=== PATIENT | female | born 1955 | race American Indian/Alaskan Native ===

== ENCOUNTER 2016-12-22 14:23 | Inpatient (IN) | payer MEDICAID, OTHER ==
[2016-12-22 14:26] VITALS: BMI 17.3
[2016-12-22] MEDS ORDERED: Sodium Chloride 0.9% 500 ML IV STA (14:51)
[2016-12-22] MEDS ORDERED: Iohexol 240 (50 ml) ONE (14:58)
--- NOTE | 2016-12-22 15:00 | ED PDOC ---
Arrival/HPI - General Chief Complaint: GI Problem Time Seen by Provider: 12/22/16 14:34 Historian: Patient - History of Present Illness Narrative History of Present Illness (Text): 12/22/16 14:56 61 yo F with past medical history of hypertension and hiatal hernia, complains of one-week history of decreased appetite, due to nausea and vomiting associated with intermittent upper abdominal abdominal pain, patient also reports a 10 pound weight loss in the past month. Patient states that she is currently visiting her daughter here in [place] and receives most of her care in [facility], states that she recently saw a surgeon at the clinic and was advised that a hiatal hernia cannot be repaired. She adds that she has seen a GI doctor in the past, has had a recent endoscopy and colonoscopy which were within normal limits. Otherwise: (-) chest pain, (-) SOB, (-) diarrhea, (-) fever, (-) melena, (-) hematochezia, (-) urinary symptom. Has history of prior abdominal surgery - hysterectomy and prior umbilical hernia repair. PMD in [place] Past Medical History - Provider Review Nursing Documentation Reviewed: Yes - Infectious Disease Hx of Infectious Diseases: None - Cardiac Hx Angina: Yes Hx Hypertension: Yes - Neurological HX Cerebrovascular Accident: Yes Hx Migraine: Yes - Hematological/Oncological Hx Anemia: Yes - Musculoskeletal/Rheumatological Hx Arthritis: Yes - Gastrointestinal Hx Gastrointestinal Disorders: Yes - Genitourinary/Gynecological Other/Comment: stress incontinence - Psychiatric Hx Substance Use: No - Surgical History Hx Hysterectomy: Yes - Anesthesia Hx Anesthesia: Yes Hx Anesthesia Reactions: No Hx Malignant Hyperthermia: No Family/Social History - Physician Review Nursing Documentation Reviewed: Yes Family/Social History: No Known Family HX Smoking Status: Former Smoker Hx Alcohol Use: Yes (stopped) Hx Substance Use: No Allergies/Home Meds Allergies/Adverse Reactions: Allergies No Known Allergies Allergy (Verified 12/22/16 14:26) Home Medications: Home Meds Medication Instructions Recorded Confirmed Ferrous Sulfate [Feosol] 1 tab PO DAILY 12/22/16 12/22/16 Hydrochlorothiazide [Microzide] 1 tab PO DAILY 12/22/16 12/22/16 Naproxen [Naprosyn Tab] 1 tab PO BID 12/22/16 12/22/16 amLODIPine [Norvasc] 1 tab PO DAILY 12/22/16 12/22/16 Review of Systems - Review of Systems Constitutional: Normal, Weight Change. absent: Fatigue, Fevers Respiratory: Normal. absent: SOB, Cough, Sputum Cardiovascular: Normal. absent: Chest Pain, Palpitations, Edema Gastrointestinal: Normal, Abdominal Pain, Nausea, Vomiting, Appetite Changes. absent: Stool Changes, Constipation, Diarrhea Genitourinary Female: Normal. absent: Dysuria, Frequency, Hematuria Musculoskeletal: Normal. absent: Arthralgias, Back Pain, Neck Pain Skin: Normal. absent: Rash, Pruritis, Skin Lesions Neurological: Normal. absent: Headache, Dizziness, Focal Weakness Physical Exam - Physical Exam Narrative Physical Exam (Text): 12/22/16 15:01 GENERAL APPEARANCE: Patient is awake, alert, oriented x 3, in no acute distress , patient is cachectic in appearance. SKIN: Warm, dry; (-) cyanosis. EYES: (-) conjunctival pallor, (-) scleral icterus. ENMT: Mucous membranes dry. NECK: (-) tenderness, (-) stiffness, (-) lymphadenopathy. CHEST AND RESPIRATORY: (-) rales, (-) rhonchi, (-) wheezes; breath sounds equal bilaterally. HEART AND CARDIOVASCULAR: (-) irregularity; (-) murmur, (-) gallop. ABDOMEN AND GI: (+) vertical surgical scar from the epigastric area to the umbilicus, (-) distention. Bowel sounds active; soft, (+) upper and mid abdominal tenderness, (-) guarding, (-) rebound, (-) palpable masses, (-) CVA tenderness. EXTREMITIES: (-) deformity, (-) edema, (+) distal pulses. NEURO AND PSYCH: Mental status as above; (-) focal findings. Vital Signs Temp Pulse Resp BP Pulse Ox 12/22/16 21:23 103 H 18 140/70 100 12/22/16 19:07 88 18 134/72 96 12/22/16 17:46 86 18 104/68 98 12/22/16 15:35 98 H 18 102/65 98 12/22/16 14:33 97.7 F 107 H 18 100/67 98 Medical Decision Making ED Course and Treatment: 12/22/16 15:00 61 yo F with past medical history of hypertension and hiatal hernia, complains of one-week history of decreased appetite, due to nausea and vomiting associated with intermittent upper abdominal abdominal pain, patient also reports a 10 pound weight loss in the past month. Plan: -- Labs -- IV fluids -- Urinalysis -- EKG -- CXR -- Pepcid / Zofran / Toradol -- Patient placed in ED observation -- CT AP - Lab Interpretations Lab Results: 12/22/16 15:30 12/22/16 15:30 Lab Results 12/22/16 18:15: Urine Color Yellow, Urine Appearance Cloudy, Urine pH 7.5, Ur Specific [place] 1.015, Urine Protein Trace H, Urine Glucose (UA) Negative, Urine Ketones Trace H, Urine Blood Negative, Urine Nitrate Positive H, Urine Bilirubin Negative, Urine Urobilinogen 1.0 H, Ur Leukocyte Esterase Moderate H, Urine RBC 0 - 2, Urine WBC 10 - 15, Ur Epithelial Cells 4 - 5, Urine Bacteria Many 12/22/16 15:30: Sodium 135, Potassium 3.3 L, Chloride 90 L, Carbon Dioxide 30, Anion Gap 18, BUN 29 H, Creatinine 0.8, Est GFR ( Amer) > 60, Est GFR ( Non-Af Amer) > 60, Random Glucose 137 H, Calcium 10.4, Total Bilirubin 0.9, AST 27, ALT 16, Alkaline Phosphatase 56, Total Protein 8.7 H, Albumin 4.9 H, Globulin 3.8, Albumin/Globulin Ratio 1.3, Lipase 72 12/22/16 15:30: PT 12.0 H, INR 1.11 H, APTT 29.5 12/22/16 15:30: WBC 12.7 H, RBC 3.65, Hgb 10.6 L, Hct 32.3 L, MCV 88.5, MCH 29.0 , MCHC 32.8, RDW 15.2 H, Plt Count 329, MPV 8.9, Gran % 95.9 H, Lymph % (Auto) 2.3 L, [place] % (Auto) 1.7, Eos % (Auto) 0.1 L, Baso % (Auto) 0.0, Gran # 12.20 H , Lymph # 0.3 L, [place] # 0.2, Eos # 0.0, Baso # 0.00, Neutrophils % (Manual) 99 H , Lymphocytes % (Manual) 1 L, Monocytes % (Manual) TEST NOT PERFORMED, Platelet Evaluation Normal I have reviewed the lab results: Yes - RAD Interpretation Narrative RAD Interpretations (Text): 12/22/16 21:31 CT A/P w/ PO and IV contrast: FINDINGS: Lower thorax: Heart size is normal. There is inflammation in posterior mediastinal fat adjacent to the distal esophagus. Lung bases are hyperinflated but clear. ABDOMEN: Liver: There is fatty infiltration of the liver. Gallbladder and bile ducts: unremarkable Pancreas: unremarkable Spleen: unremarkable Adrenals: There is a 15 x 10 mm right adrenal cyst. Left adrenal is unremarkable. Kidneys and ureters: There are bilateral small low-attenuation renal lesions too small to characterize most likely cysts. There is no pelvocaliectasis or ureterectasis. Stomach and bowel: There are postsurgical changes at the gastric fundus suggesting fundoplication. There is mild inflammatory change at the gastroesophageal junction. Stomach is distended with a contrast fluid level. Rotation is normal. Duodenum and proximal jejunum are mildly distended and filled with contrast. Mid small bowel is dilated with air-fluid levels. There is swirling of the mesentery in the midabdomen. There is abrupt caliber change of the small bowel in the midabdomen, image 61 series 37, image 54 series 602. Distal small bowel is decompressed. Ileocecal region is difficult to evaluate. There is moderate stool in the colon. Colon is incompletely distended which limits evaluation. Appendix: See stomach and bowel PELVIS: Bladder: unremarkable Reproductive: Uterus is absent. There are no adnexal masses. ABDOMEN and PELVIS: Intraperitoneal space: There is a small amount of free fluid in the right flank. There is no free air. Bones/joints: There are degenerative changes in the osseus structures. Soft tissues: unremarkable Vasculature: There are vascular calcifications. Lymph nodes: There is no pathologic adenopathy. IMPRESSION: Mid small bowel obstruction secondary to volvulus; fundoplication with inflammatory change at the gastroesophageal junction; prior hysterectomy Additional findings as described above. Dictated and Authenticated by: Jennifer Shankar MD 12/22/2016 8:18 PM Eastern Time ([place] & [place]) Radiology Orders: 12/22/16 14:51 ABD PELVIS PO & IV CONTRAST [CT] Stat CHEST PORTABLE [RAD] Stat 12/22/16 21:12 CHEST PORTABLE [RAD] Stat - Medication Orders Current Medication Orders: Hydromorphone HCl (Dilaudid) 0.5 mg IVP Q4H PRN PRN Reason: Pain, moderate (4-7) Piperacillin Sod/Tazobactam Sod (Zosyn 3.375 In Ns 100ml) 100 mls @ 200 mls/hr IVPB Q6 REGI PRN Reason: Protocol Stop: 12/23/16 06:29 Lactated Ringer's (Lactated Ringer's) 1,000 mls @ 100 mls/hr IV .Q10H REGI Ondansetron HCl (Zofran Inj) 4 mg IVP Q6H PRN PRN Reason: Nausea/Vomiting Pantoprazole Sodium (Protonix Inj) 40 mg IVP DAILY REGI Discontinued Medications Famotidine (Pepcid) 20 mg IVP STAT STA Stop: 12/22/16 14:52 Last Admin: 12/22/16 15:36 Dose: 20 mg IVP Administration Document 12/22/16 15:36 ALHAJI (Rec: 12/22/16 15:37 [place] [id number]) Charges for Administration # of IVP Administrations 1 Sodium Chloride (Sodium Chloride 0.9%) 500 mls @ 1,000 mls/hr IV .Q30M STA Stop: 12/22/16 15:20 Last Admin: 12/22/16 15:25 Dose: 1,000 mls/hr eMAR Start Stop Document 12/22/16 15:25 ALHAJI (Rec: 12/22/16 15:26 [place] [id number]) Intravenous Solution Start Date 12/22/16 Start Time 15:25 End Date 12/22/16 End time 15:55 Total Infusion Time 30 Iohexol (Omnipaque 240 (50 Ml)) Confirm Administered Dose 50 ml .ROUTE .STK-MED ONE Stop: 12/22/16 14:59 Iohexol (Omnipaque 350 100 Ml) Confirm Administered Dose 350 mg .ROUTE .STK-MED ONE Stop: 12/22/16 18:39 Ketorolac Tromethamine (Toradol) 15 mg IVP STAT STA Stop: 12/22/16 15:01 Last Admin: 12/22/16 15:24 Dose: 15 mg MAR Pain Assessment Document 12/22/16 15:24 ALHAJI (Rec: 12/22/16 15:24 [place] [id number]) Pain Reassessment Is this a pain reassessment? Yes Presence of Pain Presence of Pain Yes Location Pain Location Body Site Abdomen Description Description Constant Intensity of Pain at present 7 IVP Administration Document 12/22/16 15:24 ALHAJI (Rec: 12/22/16 15:24 [place] [id number]) Charges for Administration # of IVP Administrations 1 Morphine Sulfate (Morphine) 2 mg IVP STAT STA Stop: 12/22/16 17:29 Last Admin: 12/22/16 17:49 Dose: 2 mg MAR Pain Assessment Document 12/22/16 17:49 IT (Rec: 12/22/16 17:49 IT [id number]) Pain Reassessment Is this a pain reassessment? Yes Sleep Is patient sleeping during reassessment? No Presence of Pain Presence of Pain Yes Pain Scale Used Pain Scale Used Numeric Location Left, Right or Bilateral Bilateral Pain Location Body Site Abdomen Description Description Pressure Intensity of Pain at present 7 IVP Administration Document 12/22/16 17:49 IT (Rec: 12/22/16 17:49 IT [id number]) Charges for Administration # of IVP Administrations 1 Ondansetron HCl (Zofran Inj) 4 mg IVP STAT STA Stop: 12/22/16 14:52 Last Admin: 12/22/16 15:23 Dose: 4 mg IVP Administration Document 12/22/16 15:23 ALHAJI (Rec: 12/22/16 15:23 [place] [id number]) Charges for Administration # of IVP Administrations 1 Ondansetron HCl (Zofran Inj) 4 mg IVP STAT STA Stop: 12/22/16 17:29 Last Admin: 12/22/16 17:45 Dose: 4 mg IVP Administration Document 12/22/16 17:45 IT (Rec: 12/22/16 17:45 IT [id number]) Charges for Administration # of IVP Administrations 1 Potassium Chloride (Potassium Chloride Oral Soln) 40 meq PO STAT STA Stop: 12/22/16 16:11 Last Admin: 12/22/16 16:42 Dose: 40 meq ED OBSERVATION Date of observation admission: 12/22/16 Time of observation admission: 14:51 - Observation admission statement Patient is being placed in observation because:: abdominal pain, N/V - Goals of Observation Goals of observation are:: to monitor patient's signs, symptoms, and response to treatment - Progress Note Progress Note: 12/22/16 16:30 Lab results reviewed : WBC 12, mild anemia noted, K 3.3, mild dehydration. Patient medicated with KCl 40 mEq PO. EKG : NSR at 93 bpm, normal axis, (-) acute ST changes, as read by PA. CXR: NAD, as read by PA. 12/22/16 17:29 On reevaluation, patient is laying in bed in no acute distress. Patient reports that her abdominal pain is recurring and that she is feeling nauseous and is having difficulty tolerating by mouth contrast. On exam, abdomen is not distended, remains soft with mid abdominal tenderness and guarding. Patient medicated with morphine 2 mg IV and Zofran [address] of the abdomen and pelvis still pending. 12/22/16 20:30 Received a call from [facility], spoke to the radiologist, who states that the patient has a mid small bowel obstruction due to a volvulus. Full CT report reviewed. client services vice president called immediately. Case d/w Dr. Yolanda Tran, nursing surgical services director who will evaluate the patient. NGT and VBG ordered. Case d/w Dr. Almanzar, who states that he will discuss the case with the nursing surgical services director for further plan of care. CT results d/w the patient in great detail, notified of dx. On re-evaluation, patient continue to c/o nausea with mid abdominal pain. On exam, abdomen is not distended, with mid abdominal tenderness. VSS. NGT placed. As per nursing surgical services director the patient will go to the OR tonight. Arrangements made for inpatient admission. Case d/w medical office professional instructor and with Dr. Israel, agree with plan to admit under the hospitalist with Dr. Almanzar as consult. - PA / MARRIAGE AND FAMILY THERAPIST / Resident Statement MD/DO has reviewed & agrees with the documentation as recorded. Disposition/Present on Arrival - Present on Arrival Any Indicators Present on Arrival: No History of DVT/PE: No History of Uncontrolled Diabetes: No Urinary Catheter: No History of Decub. Ulcer: No History Surgical Site Infection Following: None - Disposition Have Diagnosis and Disposition been Completed?: Yes Diagnosis: SBO (small bowel obstruction), Volvulus Disposition: HOSPITALIZED Disposition Time: 21:00 Patient Plan: Admission Condition: FAIR
--- NOTE | 2016-12-22 15:20 | RAD ---
HISTORY: abd pain COMPARISON: No prior. FINDINGS: LUNGS: The lungs are well inflated and clear. PLEURA: No significant pleural effusion identified, no pneumothorax apparent. CARDIOVASCULAR: Normal. OSSEOUS STRUCTURES: No significant abnormalities. VISUALIZED UPPER ABDOMEN: Normal. OTHER FINDINGS: There are multiple surgical clips in the epigastrium. IMPRESSION: No active pulmonary disease.
[2016-12-22 15:45] LABS: EOS % 0.1 % (1.5-5.0); GRAN % 95.9 % (50.0-68.0); HEMATOCRIT 32.3 % (36.0-48.0); LYMPH # 0.3 (1.2-3.4); LYMPH % 2.3 % (22.0-35.0); MEAN CELL VOLUME 88.5 fl (80.0-105.0); MEAN CORPUSCULAR HGB CONC 32.8 g/dl (31.0-37.0); MEAN PLATELET VOLUME 8.9 fl (7.0-11.0); MONO # 0.2 (0.1-0.6); MONO % 1.7 % (1.0-6.0); PLATELET COUNT 329 10^3/uL (120.0-450.0); RED CELL DISTRIBUTION WIDTH 15.2 % (11.5-14.5); WHITE BLOOD COUNT 12.7 10^3/ul (4.5-11.0)
[2016-12-22 15:58] LABS: INR 1.11 (0.93-1.08); PARTIAL THROMBOPLASTIN TIME 29.5 Seconds (23.7-30.8)
[2016-12-22 16:02] LABS: ALB/GLOB RATIO 1.3 (1.1-1.8); ALKALINE PHOSPHATASE 56 U/L (38-126); ALT/SGPT 16 U/L (7-56); AST/SGOT 27 U/L (14-36); BILIRUBIN,TOTAL 0.9 mg/dL (0.2-1.3); BLOOD UREA NITROGEN 29 mg/dL (7-21); CALCIUM 10.4 mg/dL (8.4-10.5); CARBON DIOXIDE 30 mmol/L (21-33); CHLORIDE 90 mmol/L (98-107); GFR AFRICAN-AMERICAN > 60; GLUCOSE,RANDOM 137 mg/dL (70-110); LIPASE 72 U/L (23-300); POTASSIUM 3.3 mmol/L (3.6-5.0); SODIUM 135 mmol/L (132-148); TOTAL PROTEIN 8.7 g/dL (5.8-8.3)
[2016-12-22] MEDS ORDERED: Potassium Chloride 20 mEq/15 ml LIQ UD PO STA (16:10)
[2016-12-22 17:04] LABS: NEUTROPHIL 99 % (50.0-70.0); PLATELET ESTIMATE NORMAL (NORMAL)
[2016-12-22] MEDS ORDERED: Morphine 4 mg/ml ISec IVP STA (17:28)
[2016-12-22 18:20] LABS: PH,URINE 7.5 (4.7-8.0); URINE BILIRUBIN NEGATIVE (NEGATIVE); URINE BLOOD NEGATIVE (NEGATIVE); URINE COLOR YELLOW (YELLOW); URINE GLUCOSE (UA) NEGATIVE (NEGATIVE); URINE KETONE TRACE mg/dL (NEGATIVE); URINE LEUKOCYTE ESTERASE MODERATE Leu/uL (NEGATIVE); URINE PROTEIN TRACE mg/dL (<30 mg/dL)
[2016-12-22 18:21] LABS: URINE APPEARANCE CLOUDY (CLEAR)
[2016-12-22 18:26] LABS: URINE BACTERIA MANY (NEG); URINE RBC 0 - 2 /hpf (0-2)
[2016-12-22] MEDS ORDERED: Iohexol 350 MG/100 ML VIAL ONE (18:38)
--- NOTE | 2016-12-22 20:18 | CT ---
EXAM: CT Abdomen and Pelvis With Intravenous Contrast EXAM DATE/TIME: 12/22/2016 2:51 PM CLINICAL HISTORY: 61 years old, female; Pain; Abdominal pain; Generalized; Prior surgery; Surgery date: 6+ months; Surgery type: HX hiatal hernia repair, HX hysterectomy, HX heniorrhaphy; Additional info: Abd pain, h/o hiatal hernia, prior hernia repair TECHNIQUE: Axial computed tomography images of the abdomen and pelvis with intravenous contrast. All CT scans at this facility use one or more dose reduction techniques, viz.: automated exposure control; ma/kV adjustment per patient size (including targeted exams where dose is matched to indication; i.e. head); or iterative reconstruction technique. Coronal and sagittal reformatted images were created and reviewed. CONTRAST: 100 mL of OMNIPAQUE 350 administered intravenously. COMPARISON: There are no prior studies for comparison. FINDINGS: Lower thorax: Heart size is normal. There is inflammation in posterior mediastinal fat adjacent to the distal esophagus. Lung bases are hyperinflated but clear. ABDOMEN: Liver: There is fatty infiltration of the liver. Gallbladder and bile ducts: unremarkable Pancreas: unremarkable Spleen: unremarkable Adrenals: There is a 15 x 10 mm right adrenal cyst. Left adrenal is unremarkable. Kidneys and ureters: There are bilateral small low-attenuation renal lesions too small to characterize most likely cysts. There is no pelvocaliectasis or ureterectasis. Stomach and bowel: There are postsurgical changes at the gastric fundus suggesting fundoplication. There is mild inflammatory change at the gastroesophageal junction. Stomach is distended with a contrast fluid level. Rotation is normal. Duodenum and proximal jejunum are mildly distended and filled with contrast. Mid small bowel is dilated with air-fluid levels. There is swirling of the mesentery in the midabdomen. There is abrupt caliber change of the small bowel in the midabdomen, image 61 series 37, image 54 series 602. Distal small bowel is decompressed. Ileocecal region is difficult to evaluate. There is moderate stool in the colon. Colon is incompletely distended which limits evaluation. Appendix: See stomach and bowel PELVIS: Bladder: unremarkable Reproductive: Uterus is absent. There are no adnexal masses. ABDOMEN and PELVIS: Intraperitoneal space: There is a small amount of free fluid in the right flank. There is no free air. Bones/joints: There are degenerative changes in the osseus structures. Soft tissues: unremarkable Vasculature: There are vascular calcifications. Lymph nodes: There is no pathologic adenopathy. IMPRESSION: Mid small bowel obstruction secondary to volvulus; fundoplication with inflammatory change at the gastroesophageal junction; prior hysterectomy Additional findings as described above.
[2016-12-22] MEDS ORDERED: HYDROmorphone 0.5 mg/0.5 ml ISec IVP PRN (21:04)
--- NOTE | 2016-12-22 21:39 | CP.PCM.CON ---
History of Present Illness - History of Present Illness History of Present Illness: 61F w/ PMHx of HTN, asthma, arthritis, hiatal hernia s/p hiatal hernia repair ( 2003) presents to the ED w/ complaints of abdominal pain. Patient reports earlier today she developed abdominal pain which began along mid abdominal region and began radiating towards the RLQ. Patient states when she realized pain was not improving she asked her son Mariano and her daughter in law to bring her to the ED. Patient reports having multiple bouts of non-bloody emesis. She also reports anorexia throughout the day and difficulty with swallowing as well as belching. Currently patient reports pain as a 10/10. She denies any fever/ chills. Reports nausea/vomiting, abdominal pain which has not improved since arriving to ED.Review of vitals demonstrates tachycardia (107) but other vital signs are withing normal parameters. PMHx: as stated above PSurgHx: Hiatal hernia repair (2003), hysterectomy SocHx: Denies EtOH use, smoked 1ppd for ~10 years, no longer smokes Review of Systems - Review of Systems Review of Systems: 12 pt ROS negative except as stated in HPI Past Patient History - Infectious Disease Hx of Infectious Diseases: None - Past Social History Smoking Status: Former Smoker - CARDIAC Hx Angina: Yes Hx Hypertension: Yes - NEUROLOGICAL HX Cerebrovascular Accident: Yes Hx Migraine: Yes - HEMATOLOGICAL/ONCOLOGICAL Hx Anemia: Yes - MUSCULOSKELETAL/RHEUMATOLOGICAL Hx Arthritis: Yes - GASTROINTESTINAL Hx Gastrointestinal Disorders: Yes - GENITOURINARY/GYNECOLOGICAL Other/Comment: stress incontinence - PSYCHIATRIC Hx Substance Use: No - SURGICAL HISTORY Hx Hysterectomy: Yes - ANESTHESIA Hx Anesthesia: Yes Hx Anesthesia Reactions: No Hx Malignant Hyperthermia: No Meds Allergies/Adverse Reactions: Allergies Allergy/AdvReac Type Severity Reaction Status Date / Time No Known Allergies Allergy Verified 12/22/16 14:26 - Medications Medications: Current Medications Hydromorphone HCl (Dilaudid) 0.5 mg IVP Q4H PRN PRN Reason: Pain, moderate (4-7) Pantoprazole Sodium (Protonix 40mg Ivpb) 40 mg in 100 mls @ 200 mls/hr IVPB 0600 REGI Piperacillin Sod/Tazobactam Sod (Zosyn 3.375 In Ns 100ml) 100 mls @ 200 mls/hr IVPB Q6 REGI PRN Reason: Protocol Stop: 12/23/16 06:29 Lactated Ringer's (Lactated Ringer's) 1,000 mls @ 100 mls/hr IV .Q10H REGI Ondansetron HCl (Zofran Inj) 4 mg IVP Q6H PRN PRN Reason: Nausea/Vomiting Physical Exam - Constitutional Appears: No Acute Distress - Head Exam Head Exam: NORMOCEPHALIC - Eye Exam Eye Exam: Normal appearance - ENT Exam ENT Exam: Mucous Membranes Moist - Respiratory Exam Respiratory Exam: NORMAL BREATHING PATTERN - Cardiovascular Exam Cardiovascular Exam: +S1, +S2 - GI/Abdominal Exam GI & Abdominal Exam: Guarding, Tenderness. absent: Distended, Rebound, Rigid - Extremities Exam Extremities exam: Negative for: pedal edema - Neurological Exam Neurological exam: Alert - Psychiatric Exam Psychiatric exam: Normal Mood - Skin Skin Exam: Dry, Intact, Warm Additional comments: midline laparotomy scar Results - Vital Signs Recent Vital Signs: Last Vital Signs Temp 97.7 F 12/22/16 14:33 Pulse 103 H 12/22/16 21:23 Resp 18 12/22/16 21:23 BP 140/70 12/22/16 21:23 Pulse Ox 100 12/22/16 21:23 - Labs Result Diagrams: 12/22/16 15:30 12/22/16 15:30 Labs: Laboratory Results - last 24 hr 12/22/16 12/22/16 12/22/16 15:30 15:30 15:30 WBC 12.7 H RBC 3.65 Hgb 10.6 L Hct 32.3 L MCV 88.5 MCH 29.0 MCHC 32.8 RDW 15.2 H Plt Count 329 MPV 8.9 Gran % 95.9 H Lymph % (Auto) 2.3 L [place] % (Auto) 1.7 Eos % (Auto) 0.1 L Baso % (Auto) 0.0 Gran # 12.20 H Lymph # 0.3 L [place] # 0.2 Eos # 0.0 Baso # 0.00 Neutrophils % (Manual) 99 H Lymphocytes % (Manual) 1 L Monocytes % (Manual) TEST NOT PERFORMED Platelet Evaluation Normal PT 12.0 H INR 1.11 H APTT 29.5 Sodium 135 Potassium 3.3 L Chloride 90 L Carbon Dioxide 30 Anion Gap 18 BUN 29 H Creatinine 0.8 Est GFR ( Amer) > 60 Est GFR (Non-Af Amer) > 60 Random Glucose 137 H Calcium 10.4 Total Bilirubin 0.9 AST 27 ALT 16 Alkaline Phosphatase 56 Total Protein 8.7 H Albumin 4.9 H Globulin 3.8 Albumin/Globulin Ratio 1.3 Lipase 72 Urine Color Urine Appearance Urine pH Ur Specific [place] Urine Protein Urine Glucose (UA) Urine Ketones Urine Blood Urine Nitrate Urine Bilirubin Urine Urobilinogen Ur Leukocyte Esterase Urine RBC Urine WBC Ur Epithelial Cells Urine Bacteria 12/22/16 18:15 WBC RBC Hgb Hct MCV MCH MCHC RDW Plt Count MPV Gran % Lymph % (Auto) [place] % (Auto) Eos % (Auto) Baso % (Auto) Gran # Lymph # [place] # Eos # Baso # Neutrophils % (Manual) Lymphocytes % (Manual) Monocytes % (Manual) Platelet Evaluation PT INR APTT Sodium Potassium Chloride Carbon Dioxide Anion Gap BUN Creatinine Est GFR ( Amer) Est GFR (Non-Af Amer) Random Glucose Calcium Total Bilirubin AST ALT Alkaline Phosphatase Total Protein Albumin Globulin Albumin/Globulin Ratio Lipase Urine Color Yellow Urine Appearance Cloudy Urine pH 7.5 Ur Specific [place] 1.015 Urine Protein Trace H Urine Glucose (UA) Negative Urine Ketones Trace H Urine Blood Negative Urine Nitrate Positive H Urine Bilirubin Negative Urine Urobilinogen 1.0 H Ur Leukocyte Esterase Moderate H Urine RBC 0 - 2 Urine WBC 10 - 15 Ur Epithelial Cells 4 - 5 Urine Bacteria Many Assessment & Plan - Assessment and Plan (Free Text) Assessment: 61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 Surgical plan discussed in detail with patient and patient's son. Both agree with surgical intervention. -D/w Dr. Yohan Tran PGY-2
[2016-12-22 22:54] LABS: VENOUS BLOOD GAS BASE EXCESS 5.1 mmol/L (0.0-2.0); VENOUS BLOOD PH 7.52 (7.32-7.43)
[2016-12-22] MEDS ORDERED: HYDROmorphone 1 mg/ml ISec IVP PRN (22:58)
[2016-12-22] MEDS ORDERED: Lactated Ringer's 1,000 ML IV SCH (23:00)
[2016-12-22] MEDS ORDERED: Ampicillin/Sulbactam 3 gm Inj ONE (23:22)
[2016-12-22] MEDS ORDERED: Bupivacaine 0.5% Inj(30mL) ONE (23:39)
[2016-12-23] MEDS ORDERED: Piperacillin/Tazobact 3.375 gm 100 ML IVPB SCH
--- NOTE | 2016-12-23 00:22 | PCM.SURG1 ---
Surgeon's Initial Post Op Note - Surgeon's Notes Surgeon: Dr. Almanzar Preschool Adviser: Dr. Tran PGY-2, Dr. Sen PGY-2 Type of Anesthesia: General Endo Anesthesia Administered By: Dr. Travis Pre-Operative Diagnosis: mid bowel volvulus. small bowel obstruction Operative Findings: see operative report Post-Operative Diagnosis: see operative report Operation Performed: exploratory laparotomy. lysis of adhesions. serosal repair of small bowel x2. open appendectomy Specimen/Specimens Removed: appendix Estimated Blood Loss: EBL {In ML}: 20 Blood Products Given: N/A Drains Used: No Drains Post-Op Condition: Good Date of Surgery/Procedure: 12/23/16 Time of Surgery/Procedure: 00:37
--- NOTE | 2016-12-23 01:03 | CARD ---
APPROVED REPORT EKG Measurement Heart [id number] <Conclusion> Normal sinus rhythm Nonspecific ST and T wave abnormality Abnormal ECG
--- NOTE | 2016-12-23 01:20 | CP.PCM.HP ---
<Pipe Tolentino - Last Filed: 12/23/16 19:33> History of Present Illness - History of Present Illness History of Present Illness: 61 yo Female with past medical history of HTN, anemia, Asthma, Arthriti, hysterectomy, hiatal hernia, glaucoma presents with abdominal pain. The patient states she has had the pain for a couple days now and today around 12:30 the pain was unbearable to she decided to come to the hospital. She describes it as a sharp 10/10 pain. She also says that it radiates to her back. In addition, she has not been able to eat anything today because she says that it was hard to swallow. She has also had dizziness, nausea, vomiting x2 which was non bloody and had phlegm and mucus. Her last bowel movement was 2pm today and it was normal. She denies any CP, diarrhea, fever, chills, or any other complaints. PMH: HTN, anemia,Asthma, Arthritis, hysterectomy, hiatal hernia, glaucoma presents with abdominal pain. PSH: hysterectomy, surgery for glaucoma, hernia repair Social: denies alcohol, tobacco, or illicit drug use Allergies: hay fever, NKDA Medications: Norvasc, HCTZ, iron supplement Family Hx: mother had Alzheimers, Father has emphysema, maternal aunt had Breast CA, sister has BCA Present on Admission - Present on Admission Any Indicators Present on Admission: No Review of Systems - Constitutional Constitutional: absent: Chills, Fever - EENT Eyes: absent: Change in Vision Nose/Mouth/Throat: Dysphagia. absent: Nasal Congestion, Nasal Discharge - Cardiovascular Cardiovascular: absent: Chest Pain - Respiratory Respiratory: absent: Cough, Hemoptysis, Chest Congestion - Gastrointestinal Gastrointestinal: Abdominal Pain, Dysphagia. absent: Diarrhea - Genitourinary Genitourinary: absent: Change in Urinary Stream, Difficulty Urinating, Flank Pain - Musculoskeletal Musculoskeletal: absent: Arthralgias - Integumentary Integumentary: absent: Rash - Neurological Neurological: Dizziness Past Patient History - Infectious Disease Hx of Infectious Diseases: None - Past Social History Smoking Status: Former Smoker - CARDIAC Hx Angina: Yes Hx Hypertension: Yes - NEUROLOGICAL HX Cerebrovascular Accident: Yes Hx Migraine: Yes - HEMATOLOGICAL/ONCOLOGICAL Hx Anemia: Yes - MUSCULOSKELETAL/RHEUMATOLOGICAL Hx Arthritis: Yes - GASTROINTESTINAL Hx Gastrointestinal Disorders: Yes - GENITOURINARY/GYNECOLOGICAL Other/Comment: stress incontinence - PSYCHIATRIC Hx Substance Use: No - SURGICAL HISTORY Hx Hysterectomy: Yes - ANESTHESIA Hx Anesthesia: Yes Hx Anesthesia Reactions: No Hx Malignant Hyperthermia: No Meds Allergies/Adverse Reactions: Allergies Allergy/AdvReac Type Severity Reaction Status Date / Time No Known Allergies Allergy Verified 12/22/16 14:26 Physical Exam - Head Exam Head Exam: ATRAUMATIC, NORMAL INSPECTION - Eye Exam Eye Exam: Normal appearance, PERRL - ENT Exam ENT Exam: Mucous Membranes Moist - Neck Exam Neck exam: Positive for: Normal Inspection. Negative for: Lymphadenopathy - Respiratory Exam Respiratory Exam: Clear to Auscultation Bilateral, NORMAL BREATHING PATTERN. absent: Rales, Rhonchi, Wheezes - Cardiovascular Exam Cardiovascular Exam: REGULAR RHYTHM, +S1, +S2. absent: Systolic Murmur - GI/Abdominal Exam GI & Abdominal Exam: Diminished Bowel Sounds, Guarding, Tenderness - Extremities Exam Extremities exam: Negative for: joint swelling, pedal edema - Neurological Exam Neurological exam: Alert, Oriented x3 Results - Vital Signs Recent Vital Signs: Last Vital Signs Temp 97.7 F 12/23/16 01:02 Pulse 89 12/23/16 01:02 Resp 16 12/23/16 01:02 BP 155/79 H 12/23/16 01:02 Pulse Ox 98 12/23/16 01:02 - Labs Result Diagrams: 12/22/16 15:30 12/22/16 15:30 Labs: Laboratory Results - last 24 hr 12/22/16 12/22/16 22:48 22:48 pO2 34 VBG pH 7.52 H VBG pCO2 34.0 L VBG HCO3 27.8 VBG Total CO2 28.8 H VBG O2 Sat (Calc) 77.2 H VBG Base Excess 5.1 H VBG Potassium 4.0 Sodium 132.0 Chloride 97.0 L Glucose 162 H Lactate 2.1 FiO2 21.0 Venous Blood Potassium 4.0 Blood Type O POSITIVE Antibody Screen Negative BBK History Checked No verified bt Assessment & Plan - Assessment and Plan (Free Text) Assessment: 61 yo Female with past medical history of HTN, anemia, Asthma, Arthritis, hysterectomy, hiatal hernia, glaucoma presents with abdominal pain. She is being worked up for abdominal pain due to volvulus . Plan: 1. Abdominal Pain secondary to volvulus * CT of abdomen shows mid small bowel obstruction secondary to volvulus, fundiplication with inflammatory changes at GE junction * NG tube and suction placed * Patient made NPO in the ED * Started on LR * GI Dr. Almanzar consulted, patient will be taken to the OR 2. hypokalemia * K 3.3 * K given and repleted * continue to check labs and monitor 3. UTI asymptomatic * Urine showed leukocyte esterase and urine nitrates * zosyn given in the ED * continue to monitor 4. GI/DVT Prophylaxis Patient reviewed and discussed with Dr. Israel <Alfred Israel - Last Filed: 12/23/16 20:34> Results - Vital Signs Recent Vital Signs: Last Vital Signs Temp 98.4 F 12/23/16 16:00 Pulse 87 12/23/16 16:00 Resp 18 12/23/16 16:00 BP 128/65 12/23/16 16:00 Pulse Ox 100 12/23/16 16:00 - Labs Result Diagrams: 12/23/16 09:50 12/23/16 09:50 Labs: Laboratory Results - last 24 hr 12/22/16 12/22/16 12/23/16 22:48 22:48 07:00 WBC RBC Hgb Hct MCV MCH MCHC RDW Plt Count MPV pO2 34 34 VBG pH 7.52 H 7.36 VBG pCO2 34.0 L 55.0 VBG HCO3 27.8 31.1 H VBG Total CO2 28.8 H 32.8 H VBG O2 Sat (Calc) 77.2 H 71.3 H VBG Base Excess 5.1 H 4.2 H VBG Potassium 4.0 4.0 Sodium 132.0 133.0 Chloride 97.0 L 100.0 Glucose 162 H 117 H Lactate 2.1 1.9 FiO2 21.0 21.0 Potassium Carbon Dioxide Anion Gap BUN Creatinine Est GFR ( Amer) Est GFR (Non-Af Amer) Random Glucose Calcium Total Bilirubin AST ALT Alkaline Phosphatase Total Protein Albumin Globulin Albumin/Globulin Ratio Venous Blood Potassium 4.0 4.0 Urine HCG, Qual Blood Type O POSITIVE Blood Type Confirm Antibody Screen Negative BBK History Checked No verified bt 12/23/16 12/23/16 12/23/16 08:40 09:50 09:50 WBC 11.2 H RBC 2.92 L Hgb 8.4 L D Hct 25.8 L MCV 88.4 MCH 28.8 MCHC 32.6 RDW 15.7 H Plt Count 231 MPV 9.4 pO2 VBG pH VBG pCO2 VBG HCO3 VBG Total CO2 VBG O2 Sat (Calc) VBG Base Excess VBG Potassium Sodium 135 Chloride 95 L Glucose Lactate FiO2 Potassium 4.0 Carbon Dioxide 28 Anion Gap 16 BUN 21 Creatinine 0.7 Est GFR ( Amer) > 60 Est GFR (Non-Af Amer) > 60 Random Glucose 96 Calcium 9.5 Total Bilirubin 0.6 AST 22 ALT 21 Alkaline Phosphatase 38 D Total Protein 6.8 Albumin 4.0 Globulin 2.9 Albumin/Globulin Ratio 1.4 Venous Blood Potassium Urine HCG, Qual Blood Type Blood Type Confirm O POSITIVE Antibody Screen BBK History Checked 12/23/16 12:31 WBC RBC Hgb Hct MCV MCH MCHC RDW Plt Count MPV pO2 VBG pH VBG pCO2 VBG HCO3 VBG Total CO2 VBG O2 Sat (Calc) VBG Base Excess VBG Potassium Sodium Chloride Glucose Lactate FiO2 Potassium Carbon Dioxide Anion Gap BUN Creatinine Est GFR ( Amer) Est GFR (Non-Af Amer) Random Glucose Calcium Total Bilirubin AST ALT Alkaline Phosphatase Total Protein Albumin Globulin Albumin/Globulin Ratio Venous Blood Potassium Urine HCG, Qual Negative Blood Type Blood Type Confirm Antibody Screen BBK History Checked Attending/Attestation - Attestation I have personally seen and examined this patient.: Yes I have fully participated in the care of the patient.: Yes I have reviewed all pertinent clinical information: Yes Notes (Text): 12/23/16 20:34 Agree with history , physical examination, assessment and plan.
[2016-12-23] MEDS: Lactated Ringer's 1,000 ML IV SCH ×2 (03:35→10:22)
[2016-12-23] MEDS ORDERED: Pantoprazole 40mg/100ml IVPB 40 MG/100 ML BAG IVPB SCH (06:00)
[2016-12-23] MEDS: Piperacillin/Tazobact 3.375 gm 100 ML IVPB SCH ×2 (06:32→16:54)
[2016-12-23 07:06] LABS: VENOUS BLOOD GAS BASE EXCESS 4.2 mmol/L (0.0-2.0); VENOUS BLOOD PH 7.36 (7.32-7.43)
--- NOTE | 2016-12-23 08:03 | CP.PCM.PN ---
Subjective - Date & Time of Evaluation Date of Evaluation: 12/23/16 Time of Evaluation: 06:30 - Subjective Subjective: Patient seen and examined this morning. Patient reports marked improvement in abdominal pain. States she feels much more comfortable. Figueroa output was 600ccs. NGT output scant. Abdominal incision c/d/i. Objective - Vital Signs/Intake and Output Vital Signs (last 24 hours): Temp Pulse Resp BP Pulse Ox 97.8 F 87 18 149/80 98 12/23/16 01:37 12/23/16 01:37 12/23/16 01:37 12/23/16 01:37 12/23/16 01:02 Intake and Output: 12/23/16 12/23/16 06:59 18:59 Intake Total 75 647 Output Total 660 Balance 75 -13 - Medications Medications: Current Medications Heparin Sodium (Porcine) (Heparin) 5,000 units SC Q12H REGI PRN Reason: Protocol Last Admin: 12/23/16 06:33 Dose: 5,000 units Hydromorphone HCl (Dilaudid) 0.5 mg IVP Q4H PRN PRN Reason: Pain, moderate (4-7) Lactated Ringer's (Lactated Ringer's) 1,000 mls @ 100 mls/hr IV .Q10H REGI Last Admin: 12/23/16 03:35 Dose: 100 mls/hr Piperacillin Sod/Tazobactam Sod (Zosyn 3.375 In Ns 100ml) 100 mls @ 200 mls/hr IVPB Q6H REGI PRN Reason: Protocol Stop: 12/23/16 11:44 Last Admin: 12/23/16 06:32 Dose: 200 mls/hr Ondansetron HCl (Zofran Inj) 4 mg IVP Q6H PRN PRN Reason: Nausea/Vomiting Pantoprazole Sodium (Protonix Inj) 40 mg IVP DAILY [facility] Polyethylene Glycol (Miralax) 17 gm PO DAILY [facility] - Labs Labs: PT 12.0 Seconds (9.9-11.8) H 12/22/16 15:30 INR 1.11 (0.93-1.08) H 12/22/16 15:30 APTT 29.5 Seconds (23.7-30.8) 12/22/16 15:30 - Constitutional Appears: No Acute Distress - Head Exam Head Exam: NORMOCEPHALIC - Eye Exam Eye Exam: Normal appearance - ENT Exam ENT Exam: Mucous Membranes Moist - Respiratory Exam Respiratory Exam: NORMAL BREATHING PATTERN - Cardiovascular Exam Cardiovascular Exam: +S1, +S2 - GI/Abdominal Exam GI & Abdominal Exam: Soft. absent: Distended, Firm, Guarding, Rigid, Tenderness - Extremities Exam Extremities Exam: absent: Pedal Edema - Neurological Exam Neurological Exam: Alert, Awake, Oriented x3 - Psychiatric Exam Psychiatric exam: Normal Mood - Skin Skin Exam: Dry, Warm Assessment and Plan - Assessment and Plan (Free Text) Assessment: 61F s/p exploratory laparotomy w/ lysis of adhesions POD#0 -Remove NGT -Remove Figueroa -F/u AM labs -Begin CLD -Patient out of bed to chair -DVT/GI ppx -Further recs per Dr. Yohan Tran PGY-2
[2016-12-23 09:53] LABS: HEMATOCRIT 25.8 % (36.0-48.0); MEAN CELL VOLUME 88.4 fl (80.0-105.0); MEAN CORPUSCULAR HEMOGLOBIN 28.8 pg (25.0-35.0); MEAN CORPUSCULAR HGB CONC 32.6 g/dl (31.0-37.0); MEAN PLATELET VOLUME 9.4 fl (7.0-11.0); RED CELL DISTRIBUTION WIDTH 15.7 % (11.5-14.5); WHITE BLOOD COUNT 11.2 10^3/ul (4.5-11.0)
[2016-12-23 10:02] LABS: ALB/GLOB RATIO 1.4 (1.1-1.8); ALKALINE PHOSPHATASE 38 U/L (38-126); ALT/SGPT 21 U/L (7-56); AST/SGOT 22 U/L (14-36); BILIRUBIN,TOTAL 0.6 mg/dL (0.2-1.3); BLOOD UREA NITROGEN 21 mg/dL (7-21); CALCIUM 9.5 mg/dL (8.4-10.5); CARBON DIOXIDE 28 mmol/L (21-33); CHLORIDE 95 mmol/L (98-107); GFR AFRICAN-AMERICAN > 60; GLUCOSE,RANDOM 96 mg/dL (70-110); SODIUM 135 mmol/L (132-148); TOTAL PROTEIN 6.8 g/dL (5.8-8.3)
[2016-12-23] MEDS: cefTRIAXone 1 gm 1 GM/100 ML BAG IVPB SCH (10:21)
[2016-12-23] MEDS: POLYETHYLENE GLYCOL 3350 17 GM/Dose PACKET PO SCH (10:21)
[2016-12-24] MEDS: Lactated Ringer's 1,000 ML IV SCH ×2 (02:25→22:50)
[2016-12-24 06:32] LABS: BASO # 0.01 K/mm3 (0.0-2.0); BASO % 0.2 % (0.0-3.0); EOS % 0.6 % (1.5-5.0); GRAN # 3.36 (1.4-6.5); GRAN % 72.5 % (50.0-68.0); LYMPH # 0.8 (1.2-3.4); LYMPH % 18.1 % (22.0-35.0); MEAN CELL VOLUME 88.3 fl (80.0-105.0); MEAN CORPUSCULAR HEMOGLOBIN 28.6 pg (25.0-35.0); MEAN CORPUSCULAR HGB CONC 32.4 g/dl (31.0-37.0); MEAN PLATELET VOLUME 9.2 fl (7.0-11.0); MONO # 0.4 (0.1-0.6); MONO % 8.6 % (1.0-6.0); RED CELL DISTRIBUTION WIDTH 15.5 % (11.5-14.5); WHITE BLOOD COUNT 4.6 10^3/ul (4.5-11.0)
[2016-12-24 06:41] LABS: ALB/GLOB RATIO 1.2 (1.1-1.8); ALKALINE PHOSPHATASE 30 U/L (38-126); ALT/SGPT 22 U/L (7-56); AST/SGOT 23 U/L (14-36); BILIRUBIN,TOTAL 0.5 mg/dL (0.2-1.3); BLOOD UREA NITROGEN 17 mg/dL (7-21); CALCIUM 8.6 mg/dL (8.4-10.5); CARBON DIOXIDE 29 mmol/L (21-33); CHLORIDE 97 mmol/L (98-107); GFR AFRICAN-AMERICAN > 60; GLUCOSE,RANDOM 75 mg/dL (70-110); POTASSIUM 3.5 mmol/L (3.6-5.0); SODIUM 133 mmol/L (132-148); TOTAL PROTEIN 5.7 g/dL (5.8-8.3)
[2016-12-24 06:50] LABS: HEMATOCRIT 21.9 % (36.0-48.0)
--- NOTE | 2016-12-24 07:43 | CP.PCM.PN ---
Subjective - Date & Time of Evaluation Date of Evaluation: 12/24/16 Time of Evaluation: 07:38 - Subjective Subjective: Surgery: Dr. Almanzar Pt seen and examined. Resting comfortably in bed. Pain controlled. Tolerating CLD. No N/V. Pt is not passing flatus or BM. Pt would like to eat more. Objective - Vital Signs/Intake and Output Vital Signs (last 24 hours): Temp Pulse Resp BP Pulse Ox 98.4 F 87 18 128/65 100 12/23/16 16:00 12/23/16 16:00 12/23/16 16:00 12/23/16 16:00 12/23/16 16:00 Intake and Output: 12/24/16 12/24/16 06:59 18:59 Intake Total 180 Balance 180 - Medications Medications: Current Medications Heparin Sodium (Porcine) (Heparin) 5,000 units SC Q12H REGI PRN Reason: Protocol Last Admin: 12/24/16 06:10 Dose: 5,000 units Hydromorphone HCl (Dilaudid) 0.5 mg IVP Q4H PRN PRN Reason: Pain, moderate (4-7) Lactated Ringer's (Lactated Ringer's) 1,000 mls @ 100 mls/hr IV .Q10H REGI Last Admin: 12/24/16 02:25 Dose: 100 mls/hr Ceftriaxone Sodium (Rocephin 1 Gram Ivpb) 1 gm in 100 mls @ 100 mls/hr IVPB DAILY REGI PRN Reason: Protocol Last Admin: 12/23/16 10:21 Dose: 100 mls/hr Ondansetron HCl (Zofran Inj) 4 mg IVP Q6H PRN PRN Reason: Nausea/Vomiting Pantoprazole Sodium (Protonix Inj) 40 mg IVP DAILY [facility] Last Admin: 12/23/16 10:22 Dose: 40 mg Polyethylene Glycol (Miralax) 17 gm PO DAILY REGI Last Admin: 12/23/16 10:21 Dose: 17 gm - Labs Labs: 12/24/16 06:00 12/24/16 06:00 PT 12.0 Seconds (9.9-11.8) H 12/22/16 15:30 INR 1.11 (0.93-1.08) H 12/22/16 15:30 APTT 29.5 Seconds (23.7-30.8) 12/22/16 15:30 - Constitutional Appears: Non-toxic, No Acute Distress - Head Exam Head Exam: ATRAUMATIC, NORMOCEPHALIC - Eye Exam Eye Exam: EOMI - ENT Exam ENT Exam: Mucous Membranes Moist - Neck Exam Neck Exam: Full ROM - Respiratory Exam Respiratory Exam: NORMAL BREATHING PATTERN. absent: Accessory Muscle Use, Respiratory Distress - GI/Abdominal Exam GI & Abdominal Exam: Soft. absent: Distended, Firm, Guarding, Rigid, Tenderness , Rebound Additional comments: midline incision C/D/I - Extremities Exam Extremities Exam: absent: Calf Tenderness, Pedal Edema - Neurological Exam Neurological Exam: Alert, Awake, Oriented x3 - Psychiatric Exam Psychiatric exam: Normal Affect, Normal Mood - Skin Skin Exam: Dry, Normal Color, Warm Assessment and Plan - Assessment and Plan (Free Text) Assessment: 61F w. SBO, s/p ex-lap w. BIMAL POD#1 -Hgb 7.1, will transfuse 2U PRBC -c/w pain management -will advance diet to FLD, monitor bowel fxn, ADAT -encourage OOB to chair, IS use, and ambulation -PT -will d/w attending Zemaitis PGY3
[2016-12-24] MEDS: cefTRIAXone 1 gm 1 GM/100 ML BAG IVPB SCH (09:38)
[2016-12-24] MEDS: POLYETHYLENE GLYCOL 3350 17 GM/Dose PACKET PO SCH (09:39)
--- NOTE | 2016-12-24 09:52 | CP.PCM.PN ---
<Luis Armando Baez - Last Filed: 12/24/16 12:49> Subjective - Date & Time of Evaluation Date of Evaluation: 12/24/16 Time of Evaluation: 08:00 - Subjective Subjective: Luis Armando Baez DO, PGY-1, Hospitalist Service Patient seen and examined at bedside. Patient denies any chest pain, dyspnea, fatigue, nausea or vomiting. Patient reports no BM. Nurse reports no events overnight Objective - Vital Signs/Intake and Output Vital Signs (last 24 hours): Temp Pulse Resp BP Pulse Ox 99.2 F 89 18 122/45 L 98 12/24/16 07:00 12/24/16 07:00 12/24/16 07:00 12/24/16 07:00 12/24/16 07:00 Intake and Output: 12/24/16 12/24/16 06:59 18:59 Intake Total 180 Balance 180 - Medications Medications: Current Medications Heparin Sodium (Porcine) (Heparin) 5,000 units SC Q12H REGI PRN Reason: Protocol Last Admin: 12/24/16 06:10 Dose: 5,000 units Hydromorphone HCl (Dilaudid) 0.5 mg IVP Q4H PRN PRN Reason: Pain, moderate (4-7) Lactated Ringer's (Lactated Ringer's) 1,000 mls @ 100 mls/hr IV .Q10H REGI Last Admin: 12/24/16 02:25 Dose: 100 mls/hr Ceftriaxone Sodium (Rocephin 1 Gram Ivpb) 1 gm in 100 mls @ 100 mls/hr IVPB DAILY REGI PRN Reason: Protocol Last Admin: 12/23/16 10:21 Dose: 100 mls/hr Ondansetron HCl (Zofran Inj) 4 mg IVP Q6H PRN PRN Reason: Nausea/Vomiting Pantoprazole Sodium (Protonix Inj) 40 mg IVP DAILY [facility] Last Admin: 12/23/16 10:22 Dose: 40 mg Polyethylene Glycol (Miralax) 17 gm PO DAILY REGI Last Admin: 12/23/16 10:21 Dose: 17 gm - Labs Labs: 12/24/16 06:00 12/24/16 06:00 PT 12.0 Seconds (9.9-11.8) H 12/22/16 15:30 INR 1.11 (0.93-1.08) H 12/22/16 15:30 APTT 29.5 Seconds (23.7-30.8) 12/22/16 15:30 - Constitutional Appears: Well, No Acute Distress - Head Exam Head Exam: ATRAUMATIC, NORMOCEPHALIC - Eye Exam Eye Exam: EOMI, Normal appearance Additional comments: conjuctival pallor - ENT Exam ENT Exam: Mucous Membranes Moist, Normal Oropharynx - Neck Exam Neck Exam: Normal Inspection - Respiratory Exam Respiratory Exam: Clear to Ausculation Bilateral, NORMAL BREATHING PATTERN - Cardiovascular Exam Cardiovascular Exam: RRR, +S1, +S2 - GI/Abdominal Exam GI & Abdominal Exam: Normal Bowel Sounds Additional comments: vertical incision with scar, no bleeding or infection transparent at surgical site. - Extremities Exam Extremities Exam: Normal Capillary Refill, Normal Inspection - Neurological Exam Neurological Exam: Alert, Awake, CN II-XII Intact, Oriented x3 - Psychiatric Exam Psychiatric exam: Normal Affect, Normal Mood - Skin Skin Exam: Dry, Intact, Normal Color, Warm Assessment and Plan - Assessment and Plan (Free Text) Assessment: 61 year old female with a past medical history of HCV, hypertension, and abdominal surgeries who presented with severe abdominal pain , nausea, and vomiting of one day duration that was found to have a leukocytosis with concerns of mid-bowel volvulus and SBO on computed tomography. Surgery was consulted and performed an exploratory laparatomy, lysis of adhesions, serosal repair of small bowel, and an open appendectomy. Patient is POD day 1, tolerating full liquid diet without any complaints. Plan: 1) S/P exploratory laparotomy, lysis of adhesions, serosal repair of small bowel x2, open appendectomy - Hematocrit dropped from 10.6 to 7.1 in the past 2 days. - 1U of PRBCs to be transfused - Patient is tolerating full-liquid diet, without any abdominal pain or nausea - Surgical site looks fair, no blood or signs of infection - Zofran for Nausea PRN - Miralax for constipation, patient has had no BM yet. - PT consult - Surgery is following 2) UTI - Ceftriaxone 1 gm q24h - Urine culture suggest contaminant - Repeat UA 3) DVT/GI prophylaxis: Heparin 5,000 Units SC q12h and Protonix 40 mg IVP daily FEN: Full liquid diet, 100 ml/hr of LR. <Rangasamy,Ajantha - Last Filed: 12/24/16 15:46> Objective - Vital Signs/Intake and Output Vital Signs (last 24 hours): Temp Pulse Resp BP Pulse Ox 98.5 F 92 H 16 141/83 98 12/24/16 14:13 12/24/16 14:13 12/24/16 14:13 12/24/16 14:13 12/24/16 07:00 Intake and Output: 12/24/16 12/24/16 06:59 18:59 Intake Total 180 0 Balance 180 0 - Medications Medications: Current Medications Heparin Sodium (Porcine) (Heparin) 5,000 units SC Q12H REGI PRN Reason: Protocol Last Admin: 12/24/16 06:10 Dose: 5,000 units Hydromorphone HCl (Dilaudid) 0.5 mg IVP Q4H PRN PRN Reason: Pain, moderate (4-7) Lactated Ringer's (Lactated Ringer's) 1,000 mls @ 100 mls/hr IV .Q10H [facility] Last Admin: 12/24/16 02:25 Dose: 100 mls/hr Ceftriaxone Sodium (Rocephin 1 Gram Ivpb) 1 gm in 100 mls @ 100 mls/hr IVPB DAILY REGI PRN Reason: Protocol Last Admin: 12/24/16 09:38 Dose: 100 mls/hr Ondansetron HCl (Zofran Inj) 4 mg IVP Q6H PRN PRN Reason: Nausea/Vomiting Pantoprazole Sodium (Protonix Inj) 40 mg IVP DAILY [facility] Last Admin: 12/24/16 09:38 Dose: 40 mg Polyethylene Glycol (Miralax) 17 gm PO DAILY [facility] Last Admin: 12/24/16 09:39 Dose: 17 gm - Labs Labs: 12/24/16 06:00 12/24/16 06:00 PT 12.0 Seconds (9.9-11.8) H 12/22/16 15:30 INR 1.11 (0.93-1.08) H 12/22/16 15:30 APTT 29.5 Seconds (23.7-30.8) 12/22/16 15:30 Attending/Attestation - Attestation I have personally seen and examined this patient.: Yes I have fully participated in the care of the patient.: Yes I have reviewed all pertinent clinical information, including history, physical exam and plan: Yes Notes (Text): 12/24/16 15:35 Attending note; Patient seen and examined with resident. Patient is a 61-year-old female admitted with abdominal pain. CT abdomen and pelvis consistent with mild small bowel obstruction possible volvulus. Status post laparotomy and lysis of adhesions/appendectomy. Postop day #1. Currently denies any abdominal pain. Tolerating liquid diet. No BM yet. Follow-up with surgery closely. Anemia; patient with chronic anemia. Baseline hemoglobin not known. Admitting hemoglobin might be falsely elevated secondary to dehydration. Transfuse 2 units PRBC today. Monitor closely. History of hypertension; started on Norvasc tomorrow if BP is elevated. Upon discharge patient will follow up with PMD Dr. Curtis in [facility].
[2016-12-24] MEDS ORDERED: Potassium Chloride 40 mEq/30 ml LIQ UD PO ONE (13:52)
[2016-12-24 22:07] LABS: PH,URINE 7.5 (4.7-8.0); URINE BILIRUBIN NEGATIVE (NEGATIVE); URINE BLOOD SMALL (NEGATIVE); URINE GLUCOSE (UA) NEGATIVE (NEGATIVE); URINE KETONE NEGATIVE (NEGATIVE); URINE LEUKOCYTE ESTERASE NEGATIVE Leu/uL (NEGATIVE); URINE PROTEIN TRACE mg/dL (<30 mg/dL)
[2016-12-24 22:18] LABS: URINE APPEARANCE CLEAR (CLEAR); URINE COLOR YELLOW (YELLOW)
[2016-12-24 23:05] LABS: URINE RBC 0 - 2 /hpf (0-2)
[2016-12-24 23:06] LABS: URINE BACTERIA SMALL (NEG); URINE WBC 0 - 2 /hpf (0-6)
[2016-12-25 00:40] LABS: HEMATOCRIT 32.9 % (36.0-48.0); MEAN CORPUSCULAR HEMOGLOBIN 29.7 pg (25.0-35.0); MEAN CORPUSCULAR HGB CONC 33.7 g/dl (31.0-37.0); WHITE BLOOD COUNT 7.8 10^3/ul (4.5-11.0)
[2016-12-25 07:09] LABS: EOS % 0.3 % (1.5-5.0); GRAN # 5.79 (1.4-6.5); GRAN % 83.6 % (50.0-68.0); HEMATOCRIT 30.1 % (36.0-48.0); LYMPH # 0.6 (1.2-3.4); LYMPH % 8.7 % (22.0-35.0); MEAN CORPUSCULAR HEMOGLOBIN 28.9 pg (25.0-35.0); MEAN CORPUSCULAR HGB CONC 33.2 g/dl (31.0-37.0); MEAN PLATELET VOLUME 9.1 fl (7.0-11.0); MONO # 0.5 (0.1-0.6); MONO % 7.4 % (1.0-6.0); RED CELL DISTRIBUTION WIDTH 14.9 % (11.5-14.5); WHITE BLOOD COUNT 6.9 10^3/ul (4.5-11.0)
[2016-12-25 07:42] LABS: ALB/GLOB RATIO 1.2 (1.1-1.8); ALKALINE PHOSPHATASE 37 U/L (38-126); ALT/SGPT 22 U/L (7-56); AST/SGOT 27 U/L (14-36); BLOOD UREA NITROGEN 11 mg/dL (7-21); CALCIUM 9.1 mg/dL (8.4-10.5); CARBON DIOXIDE 30 mmol/L (21-33); CHLORIDE 95 mmol/L (98-107); GFR AFRICAN-AMERICAN > 60; GLUCOSE,RANDOM 95 mg/dL (70-110); POTASSIUM 4.2 mmol/L (3.6-5.0); SODIUM 132 mmol/L (132-148); TOTAL PROTEIN 6.2 g/dL (5.8-8.3)
[2016-12-25 08:23] VITALS: BP 132/73; PULSE 73; RESP 18; TEMP 97.8; O2SAT 100
[2016-12-25] MEDS: Lactated Ringer's 1,000 ML IV SCH (08:23)
[2016-12-25] MEDS: POLYETHYLENE GLYCOL 3350 17 GM/Dose PACKET PO SCH (09:41)
[2016-12-25] MEDS: cefTRIAXone 1 gm 1 GM/100 ML BAG IVPB SCH (09:41)
--- NOTE | 2016-12-25 12:57 | CP.PCM.PN ---
Subjective - Date & Time of Evaluation Date of Evaluation: 12/25/16 Time of Evaluation: 12:05 - Subjective Subjective: Surgery Note for Dr. Almanzar 61F seen and examined at bedside. Patient denies pain, denies, nausea, vomiting , she is tolerating regular diet and passing gas. Objective - Vital Signs/Intake and Output Vital Signs (last 24 hours): Temp Pulse Resp BP Pulse Ox 97.8 F 73 18 132/73 100 12/25/16 08:00 12/25/16 08:00 12/25/16 08:00 12/25/16 08:00 12/25/16 08:00 Intake and Output: 12/25/16 12/25/16 06:59 18:59 Intake Total 760 Balance 760 - Medications Medications: Current Medications Heparin Sodium (Porcine) (Heparin) 5,000 units SC Q12H REGI PRN Reason: Protocol Last Admin: 12/24/16 06:10 Dose: 5,000 units Hydromorphone HCl (Dilaudid) 0.5 mg IVP Q4H PRN PRN Reason: Pain, moderate (4-7) Lactated Ringer's (Lactated Ringer's) 1,000 mls @ 100 mls/hr IV .Q10H REGI Last Admin: 12/25/16 08:23 Dose: 100 mls/hr Ceftriaxone Sodium (Rocephin 1 Gram Ivpb) 1 gm in 100 mls @ 100 mls/hr IVPB DAILY REGI PRN Reason: Protocol Last Admin: 12/25/16 09:41 Dose: 100 mls/hr Ondansetron HCl (Zofran Inj) 4 mg IVP Q6H PRN PRN Reason: Nausea/Vomiting Pantoprazole Sodium (Protonix Inj) 40 mg IVP DAILY [facility] Last Admin: 12/25/16 09:36 Dose: 40 mg Polyethylene Glycol (Miralax) 17 gm PO DAILY [facility] Last Admin: 12/25/16 09:41 Dose: 17 gm - Labs Labs: 12/25/16 07:04 12/25/16 07:04 PT 12.0 Seconds (9.9-11.8) H 12/22/16 15:30 INR 1.11 (0.93-1.08) H 12/22/16 15:30 APTT 29.5 Seconds (23.7-30.8) 12/22/16 15:30 - Constitutional Appears: Non-toxic, No Acute Distress - Respiratory Exam Respiratory Exam: Clear to Ausculation Bilateral, NORMAL BREATHING PATTERN - Cardiovascular Exam Cardiovascular Exam: REGULAR RHYTHM, +S1, +S2 - GI/Abdominal Exam GI & Abdominal Exam: Soft. absent: Distended, Firm, Guarding, Rigid, Tenderness , Rebound - Neurological Exam Neurological Exam: Alert, Awake - Skin Skin Exam: Dry, Intact, Normal Color, Warm Assessment and Plan - Assessment and Plan (Free Text) Assessment: 61F with SBO, s/p ex-laparotomy, BIMAL POD2 Plan: - Continue pain control - cleared for DC from surgery standpoint Discussed with Dr. Yohan Sen, PGY2
--- NOTE | 2016-12-25 13:33 | CP.PCM.DIS ---
<Ivanna Ball - Last Filed: 12/26/16 17:40> Provider - Provider Date of Admission: 12/22/16 21:19 Attending physician: Bigg Travis MD Consults: General Surgery Time Spent in preparation of Discharge (in minutes): 33 Hospital Course - Lab Results Lab Results: Most Recent Lab Values WBC 6.9 10^3/ul (4.5-11.0) 12/25/16 07:04 RBC 3.46 10^6/uL (3.5-6.1) L 12/25/16 07:04 Hgb 10.0 g/dL (12.0-16.0) L 12/25/16 07:04 Hct 30.1 % (36.0-48.0) L 12/25/16 07:04 MCV 87.0 fl (80.0-105.0) 12/25/16 07:04 MCH 28.9 pg (25.0-35.0) 12/25/16 07:04 MCHC 33.2 g/dl (31.0-37.0) 12/25/16 07:04 RDW 14.9 % (11.5-14.5) H 12/25/16 07:04 Plt Count 165 10^3/uL (120.0-450.0) 12/25/16 07:04 MPV 9.1 fl (7.0-11.0) 12/25/16 07:04 Gran % 83.6 % (50.0-68.0) H 12/25/16 07:04 Lymph % (Auto) 8.7 % (22.0-35.0) L 12/25/16 07:04 [place] % (Auto) 7.4 % (1.0-6.0) H 12/25/16 07:04 Eos % (Auto) 0.3 % (1.5-5.0) L 12/25/16 07:04 Baso % (Auto) 0.0 % (0.0-3.0) 12/25/16 07:04 Gran # 5.79 (1.4-6.5) 12/25/16 07:04 Lymph # 0.6 (1.2-3.4) L 12/25/16 07:04 [place] # 0.5 (0.1-0.6) 12/25/16 07:04 Eos # 0.0 (0.0-0.7) 12/25/16 07:04 Baso # 0.00 K/mm3 (0.0-2.0) 12/25/16 07:04 Neutrophils % (Manual) 99 % (50.0-70.0) H 12/22/16 15:30 Lymphocytes % (Manual) 1 % (22.0-35.0) L 12/22/16 15:30 Monocytes % (Manual) TEST NOT PERFORMED 12/22/16 15:30 Platelet Evaluation Normal (NORMAL) 12/22/16 15:30 PT 12.0 Seconds (9.9-11.8) H 12/22/16 15:30 INR 1.11 (0.93-1.08) H 12/22/16 15:30 APTT 29.5 Seconds (23.7-30.8) 12/22/16 15:30 pO2 34 mm/Hg (30-55) 12/23/16 07:00 VBG pH 7.36 (7.32-7.43) 12/23/16 07:00 VBG pCO2 55.0 (40-60) 12/23/16 07:00 VBG HCO3 31.1 mmol/l (21-28) H 12/23/16 07:00 VBG Total CO2 32.8 mmol.L (22-28) H 12/23/16 07:00 VBG O2 Sat (Calc) 71.3 % (40-65) H 12/23/16 07:00 VBG Base Excess 4.2 mmol/L (0.0-2.0) H 12/23/16 07:00 VBG Potassium 4.0 mmol/L (3.6-5.2) 12/23/16 07:00 Sodium 133.0 mmol/L (132-148) 12/23/16 07:00 Chloride 100.0 mmol/L (98-107) 12/23/16 07:00 Glucose 117 mg/dl (65-105) H 12/23/16 07:00 Lactate 1.9 mmol/L (0.7-2.1) 12/23/16 07:00 FiO2 21.0 % 12/23/16 07:00 Sodium 132 mmol/L (132-148) 12/25/16 07:04 Potassium 4.2 mmol/L (3.6-5.0) 12/25/16 07:04 Chloride 95 mmol/L (98-107) L 12/25/16 07:04 Carbon Dioxide 30 mmol/L (21-33) 12/25/16 07:04 Anion Gap 11 (10-20) 12/25/16 07:04 BUN 11 mg/dL (7-21) 12/25/16 07:04 Creatinine 0.6 mg/dL (0.5-1.4) 12/25/16 07:04 Est GFR ( Amer) > 60 12/25/16 07:04 Est GFR (Non-Af Amer) > 60 12/25/16 07:04 Random Glucose 95 mg/dL (70-110) 12/25/16 07:04 Calcium 9.1 mg/dL (8.4-10.5) 12/25/16 07:04 Total Bilirubin 1.0 mg/dL (0.2-1.3) 12/25/16 07:04 AST 27 U/L (14-36) 12/25/16 07:04 ALT 22 U/L (7-56) 12/25/16 07:04 Alkaline Phosphatase 37 U/L (38-126) L D 12/25/16 07:04 Total Protein 6.2 g/dL (5.8-8.3) 12/25/16 07:04 Albumin 3.4 g/dL (3.0-4.8) 12/25/16 07:04 Globulin 2.8 gm/dL 12/25/16 07:04 Albumin/Globulin Ratio 1.2 (1.1-1.8) 12/25/16 07:04 Lipase 72 U/L (23-300) 12/22/16 15:30 Venous Blood Potassium 4.0 mmol/L (3.6-5.2) 12/23/16 07:00 Urine Color Yellow (YELLOW) 12/24/16 21:50 Urine Appearance Clear (CLEAR) 12/24/16 21:50 Urine pH 7.5 (4.7-8.0) 12/24/16 21:50 Ur Specific [place] 1.015 (1.005-1.035) 12/24/16 21:50 Urine Protein Trace mg/dL (<30 mg/dL) H 12/24/16 21:50 Urine Glucose (UA) Negative mg/dL (NEGATIVE) 12/24/16 21:50 Urine Ketones Negative mg/dL (NEGATIVE) 12/24/16 21:50 Urine Blood Small (NEGATIVE) H 12/24/16 21:50 Urine Nitrate Negative (NEGATIVE) 12/24/16 21:50 Urine Bilirubin Negative (NEGATIVE) 12/24/16 21:50 Urine Urobilinogen 1.0 E.U./dL (<1 E.U./dL) H 12/24/16 21:50 Ur Leukocyte Esterase Negative Ree/uL (NEGATIVE) 12/24/16 21:50 Urine RBC 0 - 2 /hpf (0-2) 12/24/16 21:50 Urine WBC 0 - 2 /hpf (0-6) 12/24/16 21:50 Ur Epithelial Cells 10 - 12 /hpf (0-5) 12/24/16 21:50 Urine Bacteria Small (NEG) 12/24/16 21:50 Urine HCG, Qual Negative (NEGATIVE) 12/23/16 12:31 Blood Type O POSITIVE 12/22/16 22:48 Blood Type Confirm O POSITIVE 12/23/16 08:40 Antibody Screen Negative 12/22/16 22:48 Crossmatch See Detail 12/22/16 22:48 BBK History Checked No verified bt 12/22/16 22:48 - Hospital Course Hospital Course: Patient is a 61-year-old female with past medical hx of HTN, anemia, arthritis, hysterectomy, hiatal hernia, glaucoma admitted with abdominal pain. CT abdomen and pelvis consistent with mild small bowel obstruction possible volvulus. General surgery was consulted. Patient also found to have UTI and started on Rocephin. Patient was Status post laparotomy and lysis of adhesions/ appendectomy. Patient tolerated the procedure well. Was monitored post operatively. Hgb dropped to 7.1, patient was transfused 2 units of PRBcs. Hgb chet appropriately. Patient was ambulating and tolerating diet. Reports passing flatus. Miralax was given for constipation. Patient was medically stable prior to discharge. Prescriptions for Ciprofloxacin, Percocet and colace were given. Patient will follow up with PMD Dr. Curtis in [facility] [place]. All questions and concerns answered. Discharge Exam - Head Exam Head Exam: ATRAUMATIC, NORMOCEPHALIC - Eye Exam Eye Exam: EOMI, Normal appearance Pupil Exam: NORMAL ACCOMODATION, PERRL - ENT Exam ENT Exam: Mucous Membranes Moist - Respiratory Exam Respiratory Exam: Clear to PA & Lateral, UNREMARKABLE. absent: Rales, Rhonchi, Wheezes - Cardiovascular Exam Cardiovascular Exam: REGULAR RHYTHM, +S1, +S2 - GI/Abdominal Exam GI & Abdominal Exam: Soft, Tenderness. absent: Distended, Rebound, Rigid Additional comments: Mildly tender to palpation Vertical incision c/d/i - Extremities Exam Extremities exam: normal inspection - Back Exam Back exam: NORMAL INSPECTION - Neurological Exam Neurological exam: Alert, Normal Gait, Oriented x3 - Psychiatric Exam Psychiatric exam: Normal Affect, Normal Mood - Skin Skin Exam: Normal Color, Warm Discharge Plan - Discharge Medications Prescriptions: Ciprofloxacin [Cipro] 500 mg PO DAILY #5 tab Docusate [Colace] 100 mg PO BID #20 cap oxyCODONE/Acetaminophen [Percocet 5/325 mg Tab] 1 ea PO Q6H #12 tab - Follow Up Plan Condition: FAIR Disposition: HOME/ ROUTINE Instructions: Constipation (DC), Pneumococcal Vaccine for Adults (DC), Heart Healthy Diet (DC), Iron Deficiency Anemia (DC), Bowel Obstruction (DC), Fall Prevention (DC) Referrals: [facility], [Non-Staff] - <Bigg Travis - Last Filed: 12/29/16 18:56> Provider - Provider Date of Admission: 12/22/16 21:19 Attending physician: Bigg Travis MD Time Spent in preparation of Discharge (in minutes): 35 Hospital Course - Lab Results Lab Results: Most Recent Lab Values WBC 6.9 10^3/ul (4.5-11.0) 12/25/16 07:04 RBC 3.46 10^6/uL (3.5-6.1) L 12/25/16 07:04 Hgb 10.0 g/dL (12.0-16.0) L 12/25/16 07:04 Hct 30.1 % (36.0-48.0) L 12/25/16 07:04 MCV 87.0 fl (80.0-105.0) 12/25/16 07:04 MCH 28.9 pg (25.0-35.0) 12/25/16 07:04 MCHC 33.2 g/dl (31.0-37.0) 12/25/16 07:04 RDW 14.9 % (11.5-14.5) H 12/25/16 07:04 Plt Count 165 10^3/uL (120.0-450.0) 12/25/16 07:04 MPV 9.1 fl (7.0-11.0) 12/25/16 07:04 Gran % 83.6 % (50.0-68.0) H 12/25/16 07:04 Lymph % (Auto) 8.7 % (22.0-35.0) L 12/25/16 07:04 [place] % (Auto) 7.4 % (1.0-6.0) H 12/25/16 07:04 Eos % (Auto) 0.3 % (1.5-5.0) L 12/25/16 07:04 Baso % (Auto) 0.0 % (0.0-3.0) 12/25/16 07:04 Gran # 5.79 (1.4-6.5) 12/25/16 07:04 Lymph # 0.6 (1.2-3.4) L 12/25/16 07:04 [place] # 0.5 (0.1-0.6) 12/25/16 07:04 Eos # 0.0 (0.0-0.7) 12/25/16 07:04 Baso # 0.00 K/mm3 (0.0-2.0) 12/25/16 07:04 Neutrophils % (Manual) 99 % (50.0-70.0) H 12/22/16 15:30 Lymphocytes % (Manual) 1 % (22.0-35.0) L 12/22/16 15:30 Monocytes % (Manual) TEST NOT PERFORMED 12/22/16 15:30 Platelet Evaluation Normal (NORMAL) 12/22/16 15:30 PT 12.0 Seconds (9.9-11.8) H 12/22/16 15:30 INR 1.11 (0.93-1.08) H 12/22/16 15:30 APTT 29.5 Seconds (23.7-30.8) 12/22/16 15:30 pO2 34 mm/Hg (30-55) 12/23/16 07:00 VBG pH 7.36 (7.32-7.43) 12/23/16 07:00 VBG pCO2 55.0 (40-60) 12/23/16 07:00 VBG HCO3 31.1 mmol/l (21-28) H 12/23/16 07:00 VBG Total CO2 32.8 mmol.L (22-28) H 12/23/16 07:00 VBG O2 Sat (Calc) 71.3 % (40-65) H 12/23/16 07:00 VBG Base Excess 4.2 mmol/L (0.0-2.0) H 12/23/16 07:00 VBG Potassium 4.0 mmol/L (3.6-5.2) 12/23/16 07:00 Sodium 133.0 mmol/L (132-148) 12/23/16 07:00 Chloride 100.0 mmol/L (98-107) 12/23/16 07:00 Glucose 117 mg/dl (65-105) H 12/23/16 07:00 Lactate 1.9 mmol/L (0.7-2.1) 12/23/16 07:00 FiO2 21.0 % 12/23/16 07:00 Sodium 132 mmol/L (132-148) 12/25/16 07:04 Potassium 4.2 mmol/L (3.6-5.0) 12/25/16 07:04 Chloride 95 mmol/L (98-107) L 12/25/16 07:04 Carbon Dioxide 30 mmol/L (21-33) 12/25/16 07:04 Anion Gap 11 (10-20) 12/25/16 07:04 BUN 11 mg/dL (7-21) 12/25/16 07:04 Creatinine 0.6 mg/dL (0.5-1.4) 12/25/16 07:04 Est GFR ( Amer) > 60 12/25/16 07:04 Est GFR (Non-Af Amer) > 60 12/25/16 07:04 Random Glucose 95 mg/dL (70-110) 12/25/16 07:04 Calcium 9.1 mg/dL (8.4-10.5) 12/25/16 07:04 Total Bilirubin 1.0 mg/dL (0.2-1.3) 12/25/16 07:04 AST 27 U/L (14-36) 12/25/16 07:04 ALT 22 U/L (7-56) 12/25/16 07:04 Alkaline Phosphatase 37 U/L (38-126) L D 12/25/16 07:04 Total Protein 6.2 g/dL (5.8-8.3) 12/25/16 07:04 Albumin 3.4 g/dL (3.0-4.8) 12/25/16 07:04 Globulin 2.8 gm/dL 12/25/16 07:04 Albumin/Globulin Ratio 1.2 (1.1-1.8) 12/25/16 07:04 Lipase 72 U/L (23-300) 12/22/16 15:30 Venous Blood Potassium 4.0 mmol/L (3.6-5.2) 12/23/16 07:00 Urine Color Yellow (YELLOW) 12/24/16 21:50 Urine Appearance Clear (CLEAR) 12/24/16 21:50 Urine pH 7.5 (4.7-8.0) 12/24/16 21:50 Ur Specific [place] 1.015 (1.005-1.035) 12/24/16 21:50 Urine Protein Trace mg/dL (<30 mg/dL) H 12/24/16 21:50 Urine Glucose (UA) Negative mg/dL (NEGATIVE) 12/24/16 21:50 Urine Ketones Negative mg/dL (NEGATIVE) 12/24/16 21:50 Urine Blood Small (NEGATIVE) H 12/24/16 21:50 Urine Nitrate Negative (NEGATIVE) 12/24/16 21:50 Urine Bilirubin Negative (NEGATIVE) 12/24/16 21:50 Urine Urobilinogen 1.0 E.U./dL (<1 E.U./dL) H 12/24/16 21:50 Ur Leukocyte Esterase Negative Ree/uL (NEGATIVE) 12/24/16 21:50 Urine RBC 0 - 2 /hpf (0-2) 12/24/16 21:50 Urine WBC 0 - 2 /hpf (0-6) 12/24/16 21:50 Ur Epithelial Cells 10 - 12 /hpf (0-5) 12/24/16 21:50 Urine Bacteria Small (NEG) 12/24/16 21:50 Urine HCG, Qual Negative (NEGATIVE) 12/23/16 12:31 Blood Type O POSITIVE 12/22/16 22:48 Blood Type Confirm O POSITIVE 12/23/16 08:40 Antibody Screen Negative 12/22/16 22:48 Crossmatch See Detail 12/22/16 22:48 BBK History Checked No verified bt 12/22/16 22:48 Attending/Attestation - Attestation I have personally seen and examined this patient.: Yes I have fully participated in the care of the patient.: Yes I have reviewed all pertinent clinical information, including history, physical exam and plan: Yes Notes (Text): I have seen and examined the patient at bedside. Patient is s/p laparotomy and lysis of adhesions/appendectomy. Patient denies any complaints today. She was given 2 units of prbc. Patient will follow up with PMD Dr. Curtis in [facility] [place].
[2016-12-25] MEDS ORDERED: Pneumococcal 23-Valent Vaccine IM ONE (17:10)
--- NOTE | 2016-12-28 09:38 | OP ---
PREOPERATIVE DIAGNOSIS: Small-bowel obstruction. POSTOPERATIVE DIAGNOSIS: Small-bowel obstruction. OPERATION PERFORMED: Open laparotomy, lysis of adhesions and an incidental appendectomy. PRIMARY SURGEON: Dr. Almanzar. SECOND SURGEON: Dr. Foy. ESTIMATED BLOOD LOSS: Minimal. TRANSFUSION: None. DRAINS: None. SPECIMENS: Appendix. DESCRIPTION OF PROCEDURE: In the operating room, the patient was identified by name, name of the procedure, laterality, my ignacio, the consent, her birthday and number. The patient preoperatively had a small-bowel obstruction on a CAT scan and her abdomen was tender, they described it as a volvulus. In the operating room after a Figueroa and an NG tube were placed, the abdomen was opened through a midline incision. The fascia was accessed and the abdomen explored. There were large loops of small-bowel obstruction. The initial adhesions were seen on the abdominal wall, little to the right of the midline and these were taken down. Small serosal tears were closed with silks in the mattress manner and the bowel was run from ligament of Treitz to the ileocecal valve. There was 1 loop that was closed on itself, completely viable; this was lysed and the bowel was viable before and after the obvious obstruction was seen with dilated loops above, following through the adhesion to decompressed bowel. This became normal after lysis. The cecum was examined. The appendix was taken with an Allis, the base was taken with a clamp, tied and the base was taken with a TA-30. The abdomen was irrigated and dried. The incision was closed with a running #1 PDS above and below, tied in the middle with a buried stitch. Incision was closed with a subcuticular PDS, Dermabond and Marcaine. The patient was taken to recovery room in good condition after the sponge and needle counts declared correct. Felipe Almanzar MD
== END 2016-12-25 19:15 | disposition home or self-care (01) | DRG 148 ==
LOC: ED 14:23 → EROBSV 14:51 → ERH 21:19 → OBSVTOIN 21:19 → ERH 22:35 → 5RSO 12-23 03:36
PROVIDERS: ADMIT Internal Medicine; ATTEND Hospitalist
PROC: 0DTJ0ZZ Resection of Appendix, Open Approach (ICD-10-PCS; 2016-12-22)
PROC: 0DNE0ZZ Release Large Intestine, Open Approach (ICD-10-PCS; principal; 2016-12-22 22:56)
PROC: 0DQ80ZZ Repair Small Intestine, Open Approach (ICD-10-PCS; 2016-12-22 22:56)
PROC: 30233N1 Transfusion of Nonautologous Red Blood Cells into Peripheral Vein, Percutaneous Approach (ICD-10-PCS; 2016-12-24)
DX: K56.2 Volvulus (principal); N39.0 Urinary tract infection, site not specified; I10 Essential (primary) hypertension; E87.6 Hypokalemia; K35.80 Unspecified acute appendicitis; E86.0 Dehydration; D64.9 Anemia, unspecified; K44.9 Diaphragmatic hernia without obstruction or gangrene; K56.60 Unspecified intestinal obstruction; K66.0 Peritoneal adhesions (postprocedural) (postinfection); J45.909 Unspecified asthma, uncomplicated; H40.9 Unspecified glaucoma; M19.90 Unspecified osteoarthritis, unspecified site; Z80.3 Family history of malignant neoplasm of breast; Z82.0 Family history of epilepsy and other diseases of the nervous system; Z82.5 Family history of asthma and other chronic lower respiratory diseases; Z86.73 Personal history of transient ischemic attack (TIA), and cerebral infarction without residual deficits; Z87.891 Personal history of nicotine dependence; Z90.710 Acquired absence of both cervix and uterus; G43.909 Migraine, unspecified, not intractable, without status migrainosus; N39.3 Stress incontinence (female) (male)